=== PATIENT | female | born 1990 | race Caucasian/White ===

== ENCOUNTER 2018-04-04 16:50 | Outpatient (CLI) | payer MEDICAID ==
[2018-04-04 19:12] LABS: ADD MAN DIFF? NO
[2018-04-04 19:15] LABS: WHITE BLOOD COUNT 6.8 10^3/ul (4.8-10.8)
[2018-04-04 19:15] LABS: BASOPHILS % 0.3 % (0.0-2.0); EOSINOPHILS % 0.3 % (0.0-7.0); HEMATOCRIT 33.6 % (37.0-47.0); HEMOGLOBIN 10.7 g/dl (12.0-16.0); LYMPHOCYTES # 2.3 10^3/ul (0.8-2.9); MEAN CORPUSCULAR HEMOGLOBIN 27.8 pg (29.0-33.0); MEAN CORPUSCULAR HGB CONC 31.8 g/dl (32.0-37.0); MEAN CORPUSCULAR VOLUME 87.3 fl (82.0-101.0); MEAN PLATELET VOLUME 9.9 fl (7.4-10.4); MONOCYTE # 0.6 10^3/ul (0.3-0.9); MONOCYTES % 8.1 % (0.0-11.0); NEUTROPHIL # 3.9 10^3/ul (1.6-7.5); PLATELET COUNT 184 10^3/UL (140-415); RED BLOOD COUNT 3.85 10^6/ul (4.20-5.40); RED CELL DISTRIBUTION WIDTH 13.5 % (11.5-14.5)
== END 2018-04-04 20:22 | disposition home or self-care (01) ==
LOC: OBT 16:50 → L-D 16:52 → OBT 20:22
DX: O26.893 Other specified pregnancy related conditions, third trimester (principal); Z3A.33 33 weeks gestation of pregnancy; R10.30 Lower abdominal pain, unspecified
CPT/HCPCS: 76815; 76817; 76818; 85025; 85460; 86850; 86900; 86901

== ENCOUNTER 2018-05-21 10:39 | Outpatient (CLI) | payer MEDICAID | END 2018-05-21 14:25 | disposition home or self-care (01) | LOC: OBT 10:39 → L-D 10:39 → OBT 14:25 | DX: O36.8330 Maternal care for abnormalities of the fetal heart rate or rhythm, third trimester, not applicable or unspecified (principal); Z3A.40 40 weeks gestation of pregnancy | CPT/HCPCS: 76815; 76818 ==

== ENCOUNTER 2018-05-23 11:36 | Inpatient (IN) | payer MEDICAID ==
[2018-05-23] MEDS ORDERED: BUTORPHANOL 2 MG INJ IV (12:00)
[2018-05-23] MEDS ORDERED: CARBOPROST 250 MCG INJ IM (12:00)
[2018-05-23] MEDS ORDERED: OXYTOCIN 30 UNITS/LR 500 ML IV (12:00)
[2018-05-23] MEDS ORDERED: MISOPROSTOL 50 MCG CAPSULE VAG (12:00)
[2018-05-23] MEDS ORDERED: MISOPROSTOL 200 MCG TAB PR (12:00)
[2018-05-23] MEDS: LACTATED RINGER'S 1,000 ML IV ×3 (12:33→22:03)
[2018-05-23 12:51] LABS: ADD MAN DIFF? NO
[2018-05-23 12:53] LABS: BASOPHILS % 0.4 % (0.0-2.0); EOSINOPHILS # 0.1 10^3/ul (0.0-0.5); HEMATOCRIT 38.2 % (37.0-47.0); HEMOGLOBIN 12.6 g/dl (12.0-16.0); LYMPHOCYTES % 39.5 % (15.0-51.0); MEAN CORPUSCULAR HEMOGLOBIN 28.3 pg (29.0-33.0); MEAN CORPUSCULAR VOLUME 85.7 fl (82.0-101.0); MONOCYTE # 0.6 10^3/ul (0.3-0.9); MONOCYTES % 12.4 % (0.0-11.0); NEUTROPHIL # 2.3 10^3/ul (1.6-7.5); NEUTROPHILS % 46.5 % (39.0-77.0); PLATELET COUNT 220 10^3/UL (140-415); RED BLOOD COUNT 4.46 10^6/ul (4.20-5.40); RED CELL DISTRIBUTION WIDTH 13.6 % (11.5-14.5)
[2018-05-23 13:12] LABS: PROTIME 12.3 Sec (11.9-14.9)
[2018-05-23 13:13] LABS: PARTIAL THROMBOPLASTIN TIME 29.6 Sec (23.0-35.0)
[2018-05-23] MEDS: MISOPROSTOL 50 MCG CAPSULE PO ×2 (13:29→18:17)
[2018-05-23 13:55] LABS: HEPATITIS B SURFACE ANTIGEN NEGATIVE (NEGATIVE)
[2018-05-23 19:03] LABS: RAPID PLASMA REAGIN NONREACTIVE (NR)
[2018-05-23] MEDS ORDERED: FENTAnyl 2MCG/ML-ROPIV 0.2% 100 ML (21:56)
[2018-05-23] MEDS ORDERED: DIPHENHYDRAMINE 50 MG INJ IV (22:00)
[2018-05-23] MEDS ORDERED: NALOXONE (0.4 MG/ML) INJ IV (22:00)
[2018-05-23] MEDS ORDERED: ONDANSETRON 4 MG INJ IV (22:00)
[2018-05-24] MEDS: LACTATED RINGER'S 1,000 ML IV (02:15)
[2018-05-24] MEDS: FENTAnyl 2MCG/ML-ROPIV 0.2% 100 ML BAG EPI (05:59)
[2018-05-24] MEDS: LIDOCAINE 1% (MPF) 30 ML INJ INJ ×2 (08:10→08:33)
[2018-05-24] MEDS: METHYLERGONOVINE 0.2 MG INJ IM (08:32)
[2018-05-24] MEDS: OXYTOCIN 30 UNITS/LR 500 ML IV ×3 (08:34→11:37)
[2018-05-24] MEDS: IBUPROFEN 600 MG TAB PO ×2 (08:47→09:36)
[2018-05-24] MEDS: LACTATED RINGER'S 1,000 ML IV* ×2 (11:37→20:44)
[2018-05-24] MEDS ORDERED: OXYTOCIN 30 UNITS/LR 500 ML IV (12:00)
[2018-05-24] MEDS ORDERED: ACETAMINOPHEN 325 MG TAB PO (12:00)
[2018-05-24] MEDS ORDERED: METHYLERGONOVINE 0.2 MG INJ IM (12:00)
[2018-05-24] MEDS ORDERED: CARBOPROST 250 MCG INJ IM (12:00)
[2018-05-24] MEDS ORDERED: ZOLPIDEM 5 MG TAB PO (12:00)
[2018-05-24] MEDS ORDERED: SENNA/DOCUSATE NA (8.6MG/50MG) TAB PO (12:00)
[2018-05-24] MEDS ORDERED: MISOPROSTOL 200 MCG TAB PR (12:00)
[2018-05-24] MEDS ORDERED: MAGNESIUM HYDROXIDE 30ML CUP PO (12:00)
[2018-05-24] MEDS ORDERED: DIPHENHYDRAMINE 25 MG CAP PO (12:00)
[2018-05-24] MEDS: BENZOCAINE 20% 56 ML SPRAY TOP (12:02)
[2018-05-24] MEDS: HYDROCODONE/APAP (5/325) TAB PO (12:02)
[2018-05-24] MEDS: LANOLIN HPA 1 PKT TOP (12:02)
[2018-05-24] MEDS: WITCH HAZEL/GLYCERIN PAD PR (12:03)
[2018-05-24] MEDS: IBUPROFEN 800 MG TAB PO ×3 (17:14→23:35)
[2018-05-25] MEDS: HYDROCODONE/APAP (5/325) TAB PO ×2 (00:35→15:10)
[2018-05-25] MEDS: LACTATED RINGER'S 1,000 ML IV* ×3 (03:37→22:03)
[2018-05-25] MEDS: IBUPROFEN 800 MG TAB PO ×4 (05:40→23:52)
[2018-05-25 08:38] LABS: ADD MAN DIFF? NO
[2018-05-25 08:48] LABS: BASOPHILS % 0.3 % (0.0-2.0); EOSINOPHILS # 0.1 10^3/ul (0.0-0.5); EOSINOPHILS % 0.8 % (0.0-7.0); HEMATOCRIT 27.7 % (37.0-47.0); HEMOGLOBIN 9.1 g/dl (12.0-16.0); LYMPHOCYTES # 2.7 10^3/ul (0.8-2.9); LYMPHOCYTES % 30.6 % (15.0-51.0); MEAN CORPUSCULAR HEMOGLOBIN 28.4 pg (29.0-33.0); MEAN CORPUSCULAR HGB CONC 32.9 g/dl (32.0-37.0); MEAN CORPUSCULAR VOLUME 86.6 fl (82.0-101.0); MEAN PLATELET VOLUME 9.8 fl (7.4-10.4); MONOCYTE # 0.7 10^3/ul (0.3-0.9); MONOCYTES % 7.7 % (0.0-11.0); NEUTROPHIL # 5.3 10^3/ul (1.6-7.5); NEUTROPHILS % 60.1 % (39.0-77.0); PLATELET COUNT 158 10^3/UL (140-415); RED CELL DISTRIBUTION WIDTH 13.6 % (11.5-14.5)
[2018-05-25 08:48] LABS: WHITE BLOOD COUNT 8.9 10^3/ul (4.8-10.8)
[2018-05-25] MEDS: INFLUENZA VIRUS VACCINE 0.5 ML (DISPENSING) IM* (11:46)
[2018-05-26] MEDS: LACTATED RINGER'S 1,000 ML IV* (03:37)
[2018-05-26] MEDS: IBUPROFEN 800 MG TAB PO ×2 (05:39→12:32)
[2018-05-26] MEDS: VARICELLA VACCINE LIVE/PF 1,350 UNIT/0.5 ML ML SC* (09:00)
[2018-05-26] MEDS: MEASLES,MUMPS,RUBELLA VACCINE INJ SC* (09:00)
[2018-05-26] MEDS: DIPHTH/TET/ACEL PERTUSS (ADULT) 0.5 ML VIAL IM* (12:34)
[2018-05-26] MEDS: LANOLIN HPA 1 PKT TOP (12:45)
== END 2018-05-26 13:52 | disposition home or self-care (01) | DRG 807 ==
LOC: OBT 11:36 → PP1 05-24 10:32 → L-D 11:40
PROVIDERS: Obstetrics & Gynecology
PROC: 10E0XZZ Delivery of Products of Conception, External Approach (ICD-10-PCS; principal; 2018-05-24)
DX: O48.0 Post-term pregnancy (principal); Z37.0 Single live birth; Z3A.40 40 weeks gestation of pregnancy
CPT/HCPCS: 62319; 85025; 85610; 85730; 86592; 86850; 86900; 86901; 87340; 90686; 90715